=== PATIENT | male | born 1965 | race Two or more races ===

== ENCOUNTER 2021-03-08 12:47 | Outpatient (CLI) | payer OTHER | END 2021-03-08 13:09 | disposition home or self-care (01) | LOC: SONOGRAMA 12:47 | PROVIDERS: ATTEND Family Medicine | DX: M77.11 Lateral epicondylitis, right elbow (principal) ==

== ENCOUNTER 2021-04-20 07:23 | Outpatient (CLI) | payer OTHER | END 2021-04-20 07:48 | disposition home or self-care (01) | LOC: SONOGRAMA 07:23 | PROVIDERS: ATTEND Family Medicine | DX: K59.09 Other constipation (principal); R10.84 Generalized abdominal pain ==